=== PATIENT | male | born 1995 | race Caucasian/White ===

== ENCOUNTER 2019-12-18 06:40 | Emergency (ER) | payer OTHER ==
[~2019-12-18] VITALS: Ht 172.7 cm; Wt 56.7 kg
== END 2019-12-18 07:57 | disposition home or self-care (01) ==
LOC: ED 06:40
DX: T40.2X1A Poisoning by other opioids, accidental (unintentional), initial encounter (principal); R06.4 Hyperventilation; F17.200 Nicotine dependence, unspecified, uncomplicated
CPT/HCPCS: 99283

== ENCOUNTER 2022-01-13 16:58 | Emergency (ER) | payer OTHER ==
[~2022-01-13] VITALS: Ht 172.7 cm; Wt 60.5 kg
[2022-01-13] MEDS ORDERED: PROMETHAZINE HC25 M1 PO (18:43)
== END 2022-01-13 19:20 | disposition home or self-care (01) ==
LOC: ED 16:58
DX: R11.10 Vomiting, unspecified (principal); F12.10 Cannabis abuse, uncomplicated; R10.9 Unspecified abdominal pain; F17.200 Nicotine dependence, unspecified, uncomplicated
CPT/HCPCS: 36415; 80053; 81001; 83690; 85025; 96361; 96374; 96375; 99284-25; A9270; J1200; J1885; J2405; J7030

== ENCOUNTER 2022-11-06 19:19 | Emergency (ER) | payer OTHER ==
[~2022-11-06] VITALS: Ht 172.7 cm; Wt 60.2 kg
--- OUTSIDE RECORDS SUMMARY | ~2022-11-06 | XMS | Continuity of Care Document ---
Demographics + + + | Address | [address] | | | [place] [address] | + + + | Preferred Language | Unknown | + + + | Marital Status | Never | + + + | Anabaptism Affiliation | Unknown | + + + | Race | White | + + + | Ethnic Group | Not or | + + + Author + + + | Author | [facility] | + + + | Organization | [facility] | + + + | Address | [address] | | | [place] [address] | + + + | Phone | | + + + Care Team Providers + + + + | Care Medical Professionals Name | Role | Phone | + [...] No information. Functional Status No information. Immunizations No information. Medications + + + + | date | description | facility | + + + + | 2022-09-30 00:00 | | [facility] | | | ASPIRIN/ACETAMINOPHEN/CAFFE | | | | INE | | + + + + | 2022-11-01 00:00 | | [facility] | | | ASPIRIN/ACETAMINOPHEN/CAFFE | | | | INE | | + + + + Problems + + + + | date | description | facility | + + + + | 2016-02-12 00:00 | Encounter for medical | [facility] | | | screening examination | | + + + + | 2016-02-12 00:00 | Encounter for medical | [facility] | | | screening examination | | + + + + | 2022-01-13 00:00 | Cannabis hyperemesis | [facility] | | | syndrome concurrent with | | | | and due tocannabis abuse | | + + + + | 2022-01-13 00:00 | Abdominal pain with | [facility] | | | vomiting | | + + + + | 2022-09-30 00:00 | Carpal tunnel syndrome | [facility] | + + + + | 2022-09-30 00:00 | Sprain of left wrist | [facility] | + + + + | 2022-09-30 [...] + + + | 2022-09-30 13:26 | ENGRAVER FLATWARE (CURRENT) USE OF | [facility] | | | ASPIRIN | | + + + + | 2022-11-01 00:00 | Patient left without being | [facility] | | | seen | | + + + + Procedures [...] 132.06 | lb | + + + +---------+"
--- OUTSIDE RECORDS SUMMARY | ~2022-11-06 | XMS | Continuity of Care Document ---
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
[~2022-11-06 19:19] MED LIST: EXCEDRIN EXTRA1 EAC1 PO; PROMETHAZINE HC25 M1 PO
--- OUTSIDE RECORDS SUMMARY | 2022-11-06 19:26 | XMS ---
PreManage Notification: WOOD SPENCER Security Endband Sizer Events No recent Security Events currently on file CRITERIA MET - [facility] - 2 Visits in 30 Days CARE PROVIDERS -Yazan- Dentist: Hearing Stenographer [facility] PHONE: [phone] Tsering has no Care Guidelines for this patient. Jimmie VISIT COUNT (12 MO.) [address] [place] [address] TOTAL 4 NOTE: Visits indicate total known visits. ED/C VISIT TRACKING (12 MO.) 11/06/2022 19:19 [facility] TYPE: Emergency COMPLAINT: - LT LEG SWELLING 11/01/2022 20:09 [facility] TYPE: Emergency COMPLAINT: - L LOWER LEG POSS INF 09/30/2022 13:26 [facility] TYPE: Emergency COMPLAINT: - L WRIST PAIN/ NO INJURY DIAGNOSES: - Carpal tunnel syndrome, left upper limb - senior living (current) use of aspirin - Nicotine dependence, unspecified, uncomplicated - Overexertion from repetitive movements, initial encounter - Pain in left wrist - Unspecified sprain of left wrist, initial encounter 01/13/2022 16:59 [facility] TYPE: Emergency COMPLAINT: - VOMITING DIAGNOSES: - Cannabis abuse, uncomplicated - Nicotine dependence, unspecified, uncomplicated - Unspecified abdominal pain - Vomiting, unspecified INPATIENT VISIT TRACKING (12 MO.) No inpatient visits to display in this time frame [id number]
[2022-11-06 20:20] VITALS: BP 111/68
== END 2022-11-06 20:23 | disposition home or self-care (01) ==
LOC: ED 19:19
DX: S80.12XA Contusion of left lower leg, initial encounter (principal); F17.200 Nicotine dependence, unspecified, uncomplicated; W01.198A Fall on same level from slipping, tripping and stumbling with subsequent striking against other object, initial encounter
CPT/HCPCS: 90471; 90715; 99283 25

== ENCOUNTER 2022-11-20 16:14 | Emergency (ER) | payer OTHER ==
[~2022-11-20] VITALS: Ht 172.7 cm; Wt 60.1 kg
--- OUTSIDE RECORDS SUMMARY | ~2022-11-20 | XMS | Continuity of Care Document ---
Demographics + + + | Address | [address] | | | [place] [address] | + + + | Preferred Language | Unknown | + + + | Marital Status | Never | + + + | Spiritism Affiliation | Unknown | + + + | Race | White | + + + | Ethnic Group | Not or | + + + Author + + + | Author | [facility] | + + + | Organization | [facility] | + + + | Address | [address] | | | [place] [address] | + + + | Phone | | + + + Care Team Providers + + + + | Care Custodial Aide Name | Role | Phone | + + + + Unavailable | Unavailable | + + + + Unavailable | Unavailable | + + + + Unavailable | Unavailable | + + + + Allergies and Intolerances + + + + + + | date | description | facility | reaction | severity | + + + + + + | (no date) | No Known Drug | [facility] | (no reaction) | (no severity) | | | Allergies | | | | + + + + + + Encounters No information. Functional Status No information. Immunizations + + + + | date | description | facility | + + + + | 2022-11-06 00:00 | Tdap | [facility] | + + + + Medications + + + + | date | description | facility | + + + + | 2022-09-30 00:00 | | [facility] | | | ASPIRIN/ACETAMINOPHEN/CAFFE | | | | INE | | + + + + | 2022-11-01 00:00 | | [facility] | | | ASPIRIN/ACETAMINOPHEN/CAFFE | | | | INE | | + + + + Problems + + + + | date | description | facility | + + + + | 2016-02-12 00:00 | Encounter for medical | [facility] | | | screening examination | | + + + + | 2016-02-12 00:00 | Encounter for medical | [facility] | | | screening examination | | + + + + | 2022-01-13 00:00 | Cannabis hyperemesis | [facility] | | | syndrome concurrent with | | | | and due tocannabis abuse | | + + + + | 2022-01-13 00:00 | Abdominal pain with | [facility] | | | vomiting | | + + + + | 2022-09-30 00:00 | Carpal tunnel syndrome | [facility] | + + + + | 2022-09-30 00:00 | Sprain of left wrist | [facility] | + + + + | 2022-09-30 13:26 | NICOTINE DEPENDENCE, | [facility] | | | UNSPECIFIED, UNCOMPLICATED | | + + + + | 2022-09-30 13:26 | CARPAL TUNNEL SYNDROME, | [facility] | | | LEFT UPPER LIMB | | + + + + | 2022-09-30 13:26 | PAIN IN LEFT WRIST | [facility] | + + + + | 2022-09-30 13:26 | UNSPECIFIED SPRAIN OF LEFT | [facility] | | | WRIST, INITIAL ENCOUNTE | | + + + + | 2022-09-30 13:26 | OVEREXERTION FROM | [facility] | | | REPETITIVE MOVEMENTS, | | | | INITIAL EN | | + + + + | 2022-09-30 13:26 | HOME IMPROVEMENT ADVISOR (CURRENT) USE OF | [facility] | | | ASPIRIN | | + + + + | 2022-11-01 00:00 | Patient left without being | [facility] | | | seen | | + + + + | 2022-11-06 00:00 | Contusion of left lower | [facility] | | | extremity | | + + + + | 2022-11-06 19:19 | NICOTINE DEPENDENCE, | [facility] | | | UNSPECIFIED, UNCOMPLICATED | | + + + + | 2022-11-06 19:19 | PAIN IN LEFT LOWER LEG | [facility] | + + + + | 2022-11-06 19:19 | CONTUSION OF LEFT LOWER | [facility] | | | LEG, INITIAL ENCOUNTER | | + + + + | 2022-11-06 19:19 | FALL SAME LEV FROM | [facility] | | | SLIP/TRIP W STRIKE AGNST | | | | OTH OB | | + + + + Procedures No information. Results/Labs No information. Social History No information. Vital Signs + + + +---------+ | date | measurement | value | units | + + + +---------+ | 2022-09-30 00:00 | BMI | 20.2 | kg/m2 | + + + +---------+ | 2022-09-30 00:00 | BP_diastolic | 83 | mmHg | + + + +---------+ | 2022-09-30 00:00 | BP_systolic | 108 | mmHg | + + + +---------+ | 2022-09-30 00:00 | heart_rate | 70 | /min | + + + +---------+ | 2022-09-30 00:00 | height_metric | 172.72 | cm | + + + +---------+ | 2022-09-30 00:00 | height_standard | 68 | in | + + + +---------+ | 2022-09-30 00:00 | o2_saturation | 98 | % | + + + +---------+ | 2022-09-30 00:00 | respiration_rate | 16 | /min | + + + +---------+ | 2022-09-30 00:00 | temperature_metric | 36.67 | C | | | | | | + + + +---------+ | 2022-09-30 00:00 | | 98 | F | | | temperature_standar | | | | | d | | | + + + +---------+ | 2022-09-30 00:00 | weight_metric | 60.33 | kg | + + + +---------+ | 2022-09-30 00:00 | weight_standard | 133 | lb | + + + +---------+ | 2022-11-01 00:00 | BMI | 20.1 | kg/m2 | + + + +---------+ | 2022-11-01 00:00 | BP_diastolic | 00 | mmHg | + + + +---------+ | 2022-11-01 00:00 | BP_systolic | 00 | mmHg | + + + +---------+ | 2022-11-01 00:00 | heart_rate | 00 | /min | + + + +---------+ | 2022-11-01 00:00 | height_metric | 172.72 | cm | + + + +---------+ | 2022-11-01 00:00 | height_standard | 68 | in | + + + +---------+ | 2022-11-01 00:00 | o2_saturation | 0 | % | + + + +---------+ | 2022-11-01 00:00 | respiration_rate | 0 | /min | + + + +---------+ | 2022-11-01 00:00 | temperature_metric | -17.78 | C | | | | | | + + + +---------+ | 2022-11-01 00:00 | | 0 | F | | | temperature_standar | | | | | d | | | + + + +---------+ | 2022-11-01 00:00 | weight_metric | 59.9 | kg | + + + +---------+ | 2022-11-01 00:00 | weight_standard | 132.06 | lb | + + + +---------+ | 2022-11-06 00:00 | BMI | 20.2 | kg/m2 | + + + +---------+ | 2022-11-06 00:00 | BP_diastolic | 68 | mmHg | + + + +---------+ | 2022-11-06 00:00 | BP_systolic | 111 | mmHg | + + + +---------+ | 2022-11-06 00:00 | heart_rate | 77 | /min | + + + +---------+ | 2022-11-06 00:00 | height_metric | 172.72 | cm | + + + +---------+ | 2022-11-06 00:00 | height_standard | 68 | in | + + + +---------+ | 2022-11-06 00:00 | o2_saturation | 100 | % | + + + +---------+ | 2022-11-06 00:00 | respiration_rate | 16 | /min | + + + +---------+ | 2022-11-06 00:00 | temperature_metric | 36.94 | C | | | | | | + + + +---------+ | 2022-11-06 00:00 | | 98.5 | F | | | temperature_standar | | | | | d | | | + + + +---------+ | 2022-11-06 00:00 | weight_metric | 60.2 | kg | + + + +---------+ | 2022-11-06 00:00 | weight_standard | 132.72 | lb | + + + +---------+"
--- OUTSIDE RECORDS SUMMARY | ~2022-11-20 | XMS | Continuity of Care Document ---
Demographics + + + | Address | [address] | | | [place] [address] | + + + | Preferred Language | Unknown | + + + | Marital Status | Never | + + + | Sabianism Affiliation | Unknown | + + + | Race | White | + + + | Ethnic Group | Not or | + + + Author + + + | Author | [facility] | + + + | Organization | [facility] | + + + | Address | [address] | | | [place] [address] | + + + | Phone | | + + + Care Team Providers + + + + | Care Buyer Broker Name | Role | Phone | + [...] | 2022-11-06 00:00 | Tdap | [facility] | + + + + Medications + + + + | date | description | facility | + + + + | 2022-09-30 00:00 | | [facility] | | | ASPIRIN/ACETAMINOPHEN/CAFFE | | | | INE | | + + + + | 2022-11-01 00:00 | | [facility] | | | ASPIRIN/ACETAMINOPHEN/CAFFE | | | | INE | | + + + + Problems + + + + | date | description | facility | + + + + | 2016-02-12 00:00 | Encounter for medical | [facility] | | | screening examination | | + + + + | 2016-02-12 00:00 | Encounter for medical | [facility] | | | screening examination | | + + + + | 2022-01-13 00:00 | Cannabis hyperemesis | [facility] | | | syndrome concurrent with | | | | and due tocannabis abuse | | + + + + | 2022-01-13 00:00 | Abdominal pain with | [facility] | | | vomiting | | + + + + | 2022-09-30 00:00 | Carpal tunnel syndrome | [facility] | + + + + | 2022-09-30 00:00 | Sprain of left wrist | [facility] | + + + + | [...] + + + | 2022-09-30 13:26 | 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 | | | extremity | | + [...]
--- OUTSIDE RECORDS SUMMARY | 2022-11-20 16:23 | XMS ---
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 Jimmie VISIT COUNT (12 MO.) [address] [place] [address] TOTAL 5 NOTE: Visits indicate total known visits. ED/C VISIT TRACKING (12 MO.) 11/20/2022 16:15 [facility] TYPE: Emergency COMPLAINT: - LT HAND LACERATION 11/06/2022 19:19 [facility] TYPE: Emergency COMPLAINT: - LT LEG SWELLING DIAGNOSES: - Contusion of left lower leg, initial encounter - Fall on same level from slipping, tripping and stumbling with subsequent striking against other object, initial encounter - Nicotine dependence, unspecified, uncomplicated - Pain in left lower leg 11/01/2022 20:09 [facility] TYPE: Emergency COMPLAINT: - L LOWER LEG POSS INF 09/30/2022 13:26 [facility] TYPE: Emergency COMPLAINT: - L WRIST PAIN/ NO INJURY DIAGNOSES: - Carpal tunnel syndrome, left upper limb - skilled nursing (current) use of aspirin - Nicotine dependence, [...] visits to display in this time frame [id number]
[2022-11-20 17:46] VITALS: BP 130/79
== END 2022-11-20 17:45 | disposition home or self-care (01) ==
LOC: ED 16:14
DX: S61.412A Laceration without foreign body of left hand, initial encounter (principal); F17.200 Nicotine dependence, unspecified, uncomplicated; W20.8XXA Other cause of strike by thrown, projected or falling object, initial encounter; Y92.89 Other specified places as the place of occurrence of the external cause; Y99.0 Civilian activity done for income or pay
CPT/HCPCS: 12001; 99282-25

== ENCOUNTER 2023-05-18 21:13 | Emergency (ER) | payer SELFPAY ==
[~2023-05-18] VITALS: Ht 172.7 cm; Wt 63.0 kg
--- OUTSIDE RECORDS SUMMARY | 2023-05-18 21:22 | XMS ---
PreManage Notification: WOOD SPENCER Security Out Of Town Collection Clerk Events 1 event(s) in the past 18 months Most recent security events: Elopement at [facility] 11/01/2022 20:09 - Patient eloped with IV in place. - Patient eloped before treatment completed. - Patient with suicidal and/or homicidal ideations eloped. Details: Patient LWBS. CRITERIA MET - Group Notification CARE PROVIDERS -Yazan- Dentist: Supervisor [facility] PHONE: [phone] Tsering has no Care Guidelines for this patient. [place] VISIT COUNT (12 MO.) 5 [facility] TOTAL 5 NOTE: Visits indicate total known visits. ED/UCC VISIT TRACKING (12 MO.) 05/18/2023 21:14 [facility] TYPE: Emergency COMPLAINT: - L HAND PAIN 11/20/2022 16:15 [facility] TYPE: Emergency COMPLAINT: - LT HAND LACERATION DIAGNOSES: - Civilian activity done for income or pay - Laceration without foreign body of left hand, initial encounter - Nicotine dependence, unspecified, uncomplicated - Other cause of strike by thrown, projected or falling object, initial encounter - Other injury of unspecified body region, initial encounter - Other specified places as the place of occurrence of the external cause 11/06/2022 19:19 [facility] TYPE: Emergency [...] Carpal tunnel syndrome, left upper limb - nursing home (current) use of aspirin - Nicotine dependence, unspecified, uncomplicated - Overexertion from repetitive movements, initial encounter - Pain in left wrist - Unspecified sprain of left wrist, initial encounter INPATIENT VISIT TRACKING (12 MO.) No inpatient visits to display in this time frame [id number]
[2023-05-18 22:35] VITALS: BP 126/82
== END 2023-05-18 22:35 | disposition home or self-care (01) ==
LOC: ED 21:13
DX: S63.602A Unspecified sprain of left thumb, initial encounter (principal); W22.03XA Walked into furniture, initial encounter; F17.200 Nicotine dependence, unspecified, uncomplicated; Z88.8 Allergy status to other drugs, medicaments and biological substances
CPT/HCPCS: 73140